=== PATIENT | female | born 1975 | race Caucasian/White ===

== ENCOUNTER → 2016-06-10 | Outpatient (CLI) | payer OTHER ==
[~2016-06-10] MED LIST: BUTACAP36 PO; CHOL100010 PO; DIVA250T PO; DPKSR500 PO; FLV1 PO; LEVE500T PO; LEVO50TA6 PO; NORT75CA PO; [UNRECOGNIZED DRUG - CODE] TOP
== END | disposition home or self-care (01) ==
LOC: C.LABPBG 13:31
PROVIDERS: ATTEND Psychiatry & Neurology Neurology
DX: G40.309 Generalized idiopathic epilepsy and epileptic syndromes, not intractable, without status epilepticus (principal)

== ENCOUNTER → 2016-06-20 | Outpatient (CLI) | payer OTHER ==
[2016-06-20 12:58] LABS: BASO % 0.4 %; BASO ABS # 0.03 K/uL (0-0.2); COMPLETE YES; EOS % 1.4 %; HEMATOCRIT 39.2 % (37-47); IG% 0.4 %; LYMPH % 26.2 %; LYMPH ABS # 2.03 K/uL (1.2-3.4); MEAN CELL VOLUME 90.1 fL (80-100); MEAN CORPUSCULAR HEMOGLOBIN 30.8 pg (25-34); MEAN CORPUSCULAR HGB CONC 34.2 g/dl (32-36); MEAN PLATELET VOLUME 9.7 fL (7.4-10.4); MONO % 8.5 %; NEUT % 63.1 %; PLATELET COUNT 299 K/uL (130-400); RED BLOOD COUNT 4.35 M/uL (4.2-5.4); WHITE BLOOD COUNT 7.74 K/uL (4.8-10.8)
[2016-06-20 13:11] LABS: ALT/SGPT 26 U/L (12-78); BLOOD UREA NITROGEN 12 mg/dl (7-18); BUN/CREATININE RATIO 16.6 (10-20); CARBON DIOXIDE 29 mmol/L (21-32); CHLORIDE 95 mmol/L (98-107); CHOLESTEROL 224 mg/dl (0-200); GLUCOSE 101 mg/dl (70-99); POTASSIUM 3.8 mmol/L (3.5-5.1); SODIUM 133 mmol/L (136-145); TRIGLYCERIDES 258 mg/dl (0-150); VERY LOW DENSITY LIPOPROT CALC 52 mg/dl
[2016-06-20 13:15] LABS: CALCIUM 9.5 mg/dl (8.5-10.1)
[2016-06-20 13:21] LABS: ALKALINE PHOSPHATASE 54 U/L (45-117); AST/SGOT 12 U/L (15-37); CHOLESTEROL/HDL RATIO 4.1; HDL CHOLESTEROL 55 mg/dl; LDL CHOLESTEROL CALCULATED 117 mg/dl
[2016-06-20 13:37] LABS: URINE APPEARANCE CLOUDY (CLEAR); URINE BILIRUBIN NEG (NEG); URINE COLOR YELLOW; URINE EPITHELIAL CELL AUTO >30 /lpf (0-5); URINE NITRITE NEG (NEG); URINE SPECIFIC GRAVITY 1.021 (1.000-1.030); UROBILINOGEN NEG (NEG); ZZUR CULT IF INDIC CLEAN CATCH YES
[2016-06-20 13:42] LABS: MANUAL MICROSCOPIC REQUIRED? NO; REVIEW REQ? YES
== END | disposition home or self-care (01) ==
LOC: C.LABPBG 09:46
PROVIDERS: ATTEND Neuromusculoskeletal Medicine & OMM
DX: Z00.00 Encounter for general adult medical examination without abnormal findings (principal); R39.11 Hesitancy of micturition

== ENCOUNTER → 2016-07-14 | Outpatient (CLI) | payer OTHER | END | disposition home or self-care (01) | LOC: C.LABPBG 08:53 | PROVIDERS: ATTEND Physician Assistant | DX: G40.309 Generalized idiopathic epilepsy and epileptic syndromes, not intractable, without status epilepticus (principal) ==

== ENCOUNTER → 2016-07-25 | Outpatient (CLI) | payer OTHER ==
--- NOTE | 2016-07-29 12:45 | MAMMOGRAPHY REPORT ---
BILATERAL DIGITAL SCREENING MAMMOGRAM TOMOSYNTHESIS WITH CAD: 07/25/2016 CLINICAL HISTORY: Asymptomatic. Personal history of breast cancer. TECHNIQUE: Breast tomosynthesis in addition to standard 2D mammography was performed. Current study was also evaluated with a Computer Aided Detection (CAD) system. COMPARISON: Comparison is made to exams dated: 05/06/2013 mammogram, 05/06/2013 ultrasound, 04/07/2016 mammogram, 10/16/2015 mammogram - [facility], 06/20/2014 mammogram, and 07/26/2013 ultrasound - [facility]. BREAST COMPOSITION: The tissue of both breasts is heterogeneously dense, which may obscure small mas ses. FINDINGS: A linear scar marker overlies the upper outer middle one third of the right breast. There is expected architectural distortion in the upper outer posterior right breast, at the site of prior lumpectomy. The scar is retracting comparing to the 2015 mammograms. There is decreasing trabecular edema and skin thickening of the right breast. No new suspicious mass, architectural distortion or cluster of microcalcifications is seen bilaterally. IMPRESSION: ACR BI-RADS CATEGORY 1: NEGATIVE There is no mammographic evidence of malignancy. A 1 year screening mammogram is recommended. The pa tient will receive written notification of the results. Approximately 10% of breast cancers are not detected with mammography. A negative mammographic report should not delay biopsy if a clinically suggestive mass is present. Macie Pina M.D. ay/:07/28/2016 16:26:24 Bus System Operator: Kylee MALHOTRA(Jane)(Alis), [facility] letter sent: Normal 1/2 BI-RADS Code: ACR BI-RADS Category 1: Negative
== END | disposition home or self-care (01) ==
LOC: C.MAMM 13:22
PROVIDERS: ATTEND Neuromusculoskeletal Medicine & OMM
DX: Z12.31 Encounter for screening mammogram for malignant neoplasm of breast (principal); Z85.3 Personal history of malignant neoplasm of breast

== ENCOUNTER → 2017-04-13 | Outpatient (CLI) | payer OTHER ==
--- NOTE | 2017-04-14 07:45 | PAP/PSG TECHNICIAN REPORT ---
[facility] Health And Physical Education Professor Polysomnogram Report Study name: None Report date: 04/14/2017 Study date: 04/13/2017 Referring Physician: DR.PATRICK ORDONEZ Name: GUSTABO RODNEY Interpreting Physician: Delroy Aguilar D.O. Date of : 1975 Health And Physical Education Professor: Mindy Ravi, PSGT. Sex: Female Age: 41 StudyType: PSG Weight: 237.4 lbs Height: 41 years, Height 5' 4" Neck Circum:14.5 inches BMI: 40.75 Medications: Nortriptyline HCI 50 mg, Briviact 100 mg, Clonazepam 0.5 mg, Depakote ER 500 mg, Folic Acid 1 mg, Fycompa 6 mg, Vit.D 2000 units, Levothyroxine 50 mcg, Vit. A 8000 units, Vit.-B-12 1000 mcg. Patient History 41 YR. OLD FEMALE PRESENTS TO THE SLEEP LAB WITH IRREGULAR SLEEP WAKE SCHEDULE.HX. OF EPILEPSY. Parameters Monitored NPSG: E1-M2, E2-M1, Fp1-M2, Fp2-M1, F3-M2, F4-M2, F4-M1, C3-M2, C4-M2, C4-M1, O1-M2, O2-M2, O2-M1, T3-M2, T4-M1, P3-M2, P4-M1, CHIN1, CHIN2, HR, EKG, Legs, PFLOW, SNOR, FLOW, CFLOW, Tidal Volume, THOR, ABDO, SpO2, PLTH, CPRESS, ETCO2 Wave, ETCO2, pH Sleep Architecture Sleep Stages Time at Lights Off 10:38:21 PM STAGES Time (min.) TST (%) Time at Lights On 5:31:21 AM Wake 33.0 -- Total Recording Time (TRT) 413.00 min. N1 1.5 0 Total Sleep Period (TSP) 380.0 min. N2 344.0 91 Total Sleep Time (TST) 380.0min. N3 34.5 9 Awake Time 33.0 min. REM 0.0 0 Wake after Sleep Onset 0.0 min. Sleep Efficiency (SE) 92 % Sleep Onset Latency (NED) 33.0 min. Number of Stage 1 Shifts None Awakenings N/A Stage Changes 6 Number of REM periods N/A REM 0.0 0 REM Latency NONE min. NREM 380.0 100 Body Position Analysis Supine Right Left Side Prone Vertical Total Sleep Time (min.) 121.9 0.0 261.6 261.62 0.0 0.0 Total Sleep Time (%) 31% 0% 69% 69 0% N/A% Total Sleep Time REM (min.) 0.0 0.0 0.0 None 0.0 0.0 Total Sleep Time NREM (min.) 118.4 0.0 261.6 None 0.0 0.0 Intermittent Wake (min.) 3.5 0.0 28.9 None 0.0 0.0 Total Sleep Period (%) 31% None None None None None Arousals Myoclonus (PLM) * Events Count Index Events Count Index Spontaneous 10 2 Events Awake (PLMW) 0 0.0 Respiratory 0 0.0 Events Asleep w/ Arousal (PLMA) 5 0.8 PLM 5 1 Events Asleep w/o Arousal (PLMS) 25 3.9 Snoring 6 1 Total Asleep 30 4.7 Total 20 3 Total 30 4 Respiratory Analysis * CA OA MA CH H RERA Total Count 0 0 0 0 6 0 6 Index 0.0 0.0 0.0 0 0.9 0 0.9 Mean Duration 0.0 0.0 0.0 0.00 15.2 0.0 15.2 Longest Duration 0.0 0.0 0.0 0.00 0.0 0.0 29.6 Respiratory Event Summary Total Supine ~Supine Right Left Prone REM NREM Apneas Count 0 0 0 N/A 0 N/A N/A 0 Index 0.0 0 0 N/A 0.0 N/A N/A 0 Hypopneas (4% Desat) Count 6 1 5 N/A 5 N/A N/A 6 Index 0.9 0.5 1 N/A 1.1 N/A N/A 0.9 Apneas & All Hypopneas Count 6 1 5 N/A 5 N/A N/A 6 Index 0.9 1 1 N/A 1 N/A N/A 0.9 Respiratory Events (Sales Development Representative+All Hyp+RERA) Count 6 1 5 N/A 5 N/A N/A 6 Index 0.9 1 1 N/A 1.1 N/A N/A 0.9 Respiratory Related Arousal Count 0 1 0 N/A 0 N/A N/A 0 Index 0.0 0 0 N/A 0 N/A N/A 0 Snoring Analysis Supine Right Left Prone REM NREM Total Snore duration 112.9 min Snores count 1,460 N/A 2,976 N/A N/A 4,436 4,436 Snore mean duration 1.5 Sec Snores index 740 N/A 683 N/A N/A 700.4 700.4 TST with snoring (%) 29.7% Desaturation Event Summary: Minimum %SpO2 Event Count Mean/Min/Max Duration(sec.) Desaturation Index % Time In Bed > 90 11 29.8 / 10.3 / 60.0 1.8 90.2 86 - 90 0 N/A 0.0 9.8 81 - 85 0 N/A 0.0 0.0 76 - 80 0 N/A 0.0 0.0 71 - 75 0 N/A 0.0 0.0 66 - 70 0 N/A 0.0 0.0 61 - 65 0 N/A 0.0 0.0 56 - 60 0 N/A 0.0 0.0 51 - 55 0 N/A 0.0 0.0 < 50 0 N/A 0.0 0.0 Total REM NREM Awake <50% 0.0 min. 0.0 min. 0.0 min. 0.0 min. 51 - 60% 0.0 min. 0.0 min. 0.0 min. 0.0 min. 61 - 70% 0.0 min. 0.0 min. 0.0 min. 0.0 min. 71 - 80% 0.0 min. 0.0 min. 0.0 min. 0.0 min. 81 - 90% 39.6 min. 0.0 min. 39.6 min. 0.0 min. 91 - 100% 364.7 min. 0.0 min. 340.3 min. 24.4 min. Average 93 0 92 96 Minimum SpO2 86 N/A 86 92 Desaturation Event Index 1.6 0.0 1.7 0.0 # Desat. Events below 89% 2 N/A 2 N/A Time(%) with Saturation below 89% 0.1 0.0 0.1 0.0 Time(min.) with Saturation below 89% 0.3 0.0 0.3 0.0 Time (mins) REM (mins) NREM (mins) % of TST SpO2 Below 90% 5 N/A N5 1.4 SpO2 Below 88% 1 0 0 0 Heart Rate Analysis Min (bpm) Max (bpm) Average (bpm) Awake 73 127 77 NREM 64 102 77 REM N/A N/A N/A Overall 64 102 77 Supplemental O2 Values Minimum O2 level: None Value Start Time End Time Health And Physical Education Professor Comments PSG Study slept in the right, left, and supine positions. No cardiac arrhythmia or PLM's noted. No bruxism noted. Snoring was noted and scored as a 4 on a scale of 1 through 5. (0=no snoring, 5=snoring loud enough to be heard through a closed door or down the wood way) awoke to use the restroom zero times during the night. stated, I did sleep as well as I do when I am in my own bed. The final report will be interpreted and signed by a sleep physician. The completed physician report will then be placed in the patient medical record No rem sleep was achieved medications may be the reason. No respiratory events were displayed. Patient was asked to turn television and phone off at 11 P.M. Therapy (cm H2O) 0 TIB (min.) 413.0 TST (min.) 380.0 Sleep Onset (min.) 33.0 REM Onset From Sleep (min.) NONE Sleep Efficiency % 92 Wakefulness (%) 8 Wakefulness (min.) 33.0 NREM 1 (%) 0 NREM 1 (min.) 1.5 NREM 2 (%) 91 NREM 2 (min.) 344.0 NREM 3 (%) 9 NREM 3 (min.) 34.5 REM (%) 0 REM (min.) 0.0 # Arousals 20 Arousal Index 3 # Snore 4,436 Snore Index 700.4 AHI 0.9 AHI Supine 1 AHI Non-Supine 1 NREM AHI 0.9 REM AHI N/A RDI 0.9 # Obstructive Apnea 0 # Central Apnea 0 # Mixed Apnea 0 # Hypopneas 6 RERAs 0 Total Respiratory Events 6 Time Below SpO2 89% (min.) 0.3 Mean NREM SpO2 (%) 92 Mean REM SpO2 (%) N/A Mean Sleep SpO2 (%) 92 Min NREM SpO2 (%) 86 Min REM SpO2 (%) N/A Position Supine (min.) 121.9 Position Non-supine (min.) 261.6 LM Index Sleep 4.7 LM Index NREM 4.7 LM Index REM N/A Mean Heart Rate (bpm) 77 Min Heart Rate (bpm) 64
--- NOTE | 2017-04-18 15:45 | Sleep Study ---
Sleep Study Report Date of Service: 04/13/2017 Sleep Study Report CLINICAL DATA: The patient is a 41-year-old female with a history of snoring and disturbed nocturnal sleep. She has sleep onset and sleep maintenance insomnia. She has a history of seizures. Her BMI is 40.75. This was an in-lab overnight diagnostic polysomnography SLEEP ARCHITECTURE: The sleep period time was 380 minutes. The total sleep time was 380 minutes. The sleep efficiency was 92 percent. The sleep latency was prolonged to 33 minutes. Wake after sleep onset was 0. Sleep consisted of stage N1 0 percent, stage N2 91 percent, stage N3 9 percent, stage REM 0 percent. AROUSAL DATA: The patient had a total of 20 arousals including 10 spontaneous arousals, 5 PLM arousals, and 6 snoring arousals. The arousal index was 3. PLM DATA: The patient had 30 periodic limb movements of sleep for a PLM index of 4.7. There were 5 arousals associated with limb movements for a PLM arousal index of 0.8. EKG: The underlying cardiac rhythm was normal sinus. The cardiac rates 64-102 beats per minute. The average heart rate was 77 beats per minute. No cardiac arrhythmia noted. RESPIRATORY DATA: The patient had a total of 6 respiratory events, all hypopneas. Hypopneas were scored according to the 4 percent desaturation rule. The mean duration of the hypopneas was 15.2 seconds. The apnea-hypopnea index was 0.9. This would indicate no significant sleep apnea. OXIMETRY DATA: The average saturation for the night was 93 percent. The minimum saturation was 86 percent. There was only 0.3 minutes with saturations less than 89 percent. VEGETABLE HARVEST MACHINE OPERATOR COMMENTS: The patient slept on the right, left, and supine positions. No cardiac arrhythmia noted. No bruxism noted. Snoring was noted and scored as a 4 on a scale of 1 through 5. The patient awaken to use the restroom 0 times during the night. The patient stated that she slept as well as she does in her own bed. IMPRESSIONS: 1. PRIMARY SNORING 2. NO EVIDENCE OF OBSTRUCTIVE SLEEP APNEA 3. INSOMNIA BY HISTORY COMMENTS: The patient had a mild prolongation to her onset of sleep. However when she fell asleep her sleep was well consolidated. It was mostly stage N2 sleep. There was no REM sleep. She does take nortriptyline that can suppress REM sleep. She had almost no respiratory events. Her oxygenation was not significantly abnormal. Her sleep efficiency was high. This was seemingly much better than what she usually does at home based upon her history. The exact reason for that is unknown. It could be that she has some degree of sleep state misperception. Alternatively she could have some degree of psychophysiologic insomnia. Those patients often times sleep better away from home than at home. There is a listed history of anxiety. It is unknown what role this may play in her symptoms. No seizure activity was noted. RECOMMENDATIONS: 1. It is suggested that the patient avoid sleeping in the supine position. Typically there more respiratory events and snoring while supine. 2. Weight loss is advised in light of the elevation of body mass index at 40.75. 3. The patient would benefit from improvement in sleep hygiene. She should have a regular sleep-wake schedule. She should allow approximately 7.5-8 hours of sleep time per night. She should try very hard not to fall asleep in the evening before bed. 4. The patient has very loud snoring. Consideration could be given to an ENT evaluation if the snoring is a major issue for her. Copies To 1: Delroy Aguilar DO; Susan Godinez D.O.
== END | disposition home or self-care (01) ==
LOC: C.NEUR 21:00
PROVIDERS: ATTEND Internal Medicine Pulmonary Disease
DX: G47.33 Obstructive sleep apnea (adult) (pediatric) (principal)